=== PATIENT | male | born 1995 | race Caucasian/White ===

== ENCOUNTER 2017-06-02 03:26 | Emergency (ER) | payer OTHER ==
[~2017-06-02] VITALS: Ht 170.2 cm; Wt 67.1 kg
[2017-06-02 03:27] VITALS: TEMP 36.6; Ht 170.2 cm; Wt 67.1 kg
[2017-06-02] MEDS ORDERED: CIPROFLOXACIN 500 MG TAB PO STA (03:47)
[2017-06-02] MEDS ORDERED: XYLOCAINE 1%/SOD BICARB 20 ML VIAL INFIL ONE (04:00)
[2017-06-02] MEDS ORDERED: CIPR-255 PO (05:06)
[2017-06-02 05:15] VITALS: BP 137/60; PULSE 80; O2SAT 97
--- NOTE | 2017-06-02 07:44 | DIAGNOSTIC IMAGING REPORT ---
RIGHT FOOT 3 VIEWS HISTORY: right foot puncture wound COMPARISON: None. FINDINGS: There is no fracture or dislocation. Mild soft tissue swelling along the plantar surface of the forefoot. No radiopaque foreign bodies. IMPRESSION: No fractures. No radiopaque foreign bodies. Electronically signed by: Edgardo Espinoza M.D. 06/02/2017 7:43 AM Dictated Date/Time: 06/02/2017 7:42 AM
--- NOTE | 2017-06-03 07:21 | EMERGENCY ROOM VISIT NOTE ---
History First contact with patient: 03:34 Chief Complaint: LACERATION/CUT (SUT/DERMABOND) Stated Complaint: RIGHT FOOT BLEEDING History of Present Illness The patient is a 21 year old male who presents to the Emergency Room with complaints of puncture wound to his right foot. The patient states that he was walking outside in his socks at night when he stepped onto a metal nail, causing blood and injury. The patient believes he is up-to-date on his tetanus. He was able to control the bleeding at home. He rates his overall discomfort a 4/10. He has not taken anything [id number] for his discomfort. Review of Systems More than 10 systems were reviewed and otherwise negative with the exception of history of present illness. Past Medical/Surgical History No chronic medical disease Family History No pertinent family history Social History Smoking Status: Never Smoker Occupation Status: [employer] student Current/Historical Medications Scheduled Ciprofloxacin Hcl (Cipro), 500 MG PO BID Physical Exam Vital Signs Date Time Temp Pulse Resp B/P (MAP) Pulse Ox O2 Delivery O2 Flow Rate FiO2 06/02/17 05:15 80 16 137/60 97 06/02/17 03:27 36.6 104 18 131/74 98 Room Air Physical Exam VITALS: Vitals are noted on the nurse's note and reviewed by myself. Vital signs stable. GENERAL: Well-developed, well-nourished, white male, who is in no acute distress and resting comfortably. Patient is cooperative with the examination. HEAD: Normocephalic atraumatic. HEART: Regular rate and rhythm without murmurs gallops or rubs. LUNGS: Clear to auscultation bilaterally without wheezes, rales or rhonchi. No retractions or accessory muscle use. MUSCULOSKELETAL: There is a laceration with puncture wound to the plantar aspect of the right foot at the base of the foot near the heel. The laceration measures approximately 3.5 cm in length. The most distal aspect of the wound is deep without obvious foreign body. Bleeding is well controlled. Neurovascular status is intact to the entirety of the right foot and right ankle. Strength of the toes and ankle is 5/5. Medical Decision & Procedures ER Provider Diagnostic Interpretation: RIGHT FOOT 3 VIEWS HISTORY: right foot puncture wound COMPARISON: None. FINDINGS: There is no fracture or dislocation. Mild soft tissue swelling along the plantar surface of the forefoot. No radiopaque foreign bodies. IMPRESSION: No fractures. No radiopaque foreign bodies. Medications Administered Medications (Trade) Dose Ordered Sig/Anum Route Start Time Stop Time Status Last Admin Dose Admin Ciprofloxacin (Cipro Tab) 500 mg NOW STAT PO 06/02/17 03:47 06/02/17 03:49 DC 06/02/17 03:55 500 MG Procedure Laceration repair. Patient elects to have their laceration repaired. Verbal consent was obtained to perform the procedure. There is an abundance of materials available for the procedure. Patient is not allergic to latex. Using sterile technique the wound was cleaned with Betadine. The area was sterilely draped. 5 ml of 1% buffered lidocaine was used to anesthetize the foot. Once the patient was anesthetized, the wound was copiously irrigated under pressure with sterile saline. The wound was explored and there were no deep structures injured such as tendons, bone, or significant blood vessels. The laceration was repaired using 5 simple interrupted 4-0 nylon sutures with the wound edges being well approximated. Hemostasis was achieved. The area was cleaned with sterile saline and dressed with bacitracin ointment and bandage. Patient tolerated the procedure well without complications. Blood loss was negligible. ED Course Physical exam and history were performed. Nursing notes, EMR, and Medication List were personally reviewed. Patient appears to have suffered a laceration/puncture wound to his right foot. The patient was given a dose of Cipro here in the department and x-ray was performed. X-ray was reviewed by myself and radiology as showing no acute foreign body or bony injury. The patient's laceration was repaired as above and he tolerated the procedure well. He will be given a continuation course of Cipro for the next few days. He is to follow with his primary care physician for ongoing care and was otherwise invited back to the ER with any new, worsening, or concerning symptoms. The chart was completed utilizing [employer] Speech Voice Recognition Software. Grammatical errors, random word insertions, pronoun errors, and incomplete sentences are an occasional consequence of this system due to software limitations, ambient noise, and hardware issues. Any formal questions or concerns about the content, text, or information contained within the body of this dictation should be directly addressed to the provider for clarification. . Medical Decision Differential diagnosis includes, but is not limited to: Laceration, abrasion, foreign body, puncture wound, infection, and others Impression Primary Impression: Foot laceration Departure Information Dispostion Home / Self-Care Condition GOOD Prescriptions Ciprofloxacin Hcl (CIPRO) 500 Mg Tab 500 MG PO BID for 5 Days, #10 TAB Prov: Edvin Adair PA-C 06/02/17 Forms HOME CARE DOCUMENTATION FORM, IMPORTANT VISIT INFORMATION Patient Instructions My [facility] Additional Instructions Keep wound clean and dry. Do not allow any crusting or dried blood to accumulate on sutures. If this occurs, use a mild soap/water on a Q-tip to clean the wound. Do not use Peroxide to clean the wound as this can delay healing Use an antibiotic ointment like Bacitracin for 3-4 days, then let wound dry. You may bathe and shower as normal, but DO NOT SOAK the wound. Suture removal in about 10-14 days with S, your Family Doctor or in the ER. Return sooner for any signs of infection, increasing redness, swelling, or drainage. Take Cipro 500 mg twice daily for the next 5 days.
== END 2017-06-02 05:15 | disposition home or self-care (01) ==
LOC: C.EDB 03:27 → C.EDA 05:15
DX: S91.311A Laceration without foreign body, right foot, initial encounter (principal); W45.0XXA Nail entering through skin, initial encounter; Y92.89 Other specified places as the place of occurrence of the external cause